=== PATIENT | male | born 1975 | race Caucasian/White ===

== ENCOUNTER 2019-08-30 10:48 | Emergency (ER) | payer BC, SELFPAY ==
--- NOTE | ~2019-08-30 | XR_ITS ---
XR shoulder LT min 2V 08/30/2019 11:22 INDICATION: Left shoulder pain PROCEDURE: 4 views left shoulder COMPARISON: No prior studies for comparison. FINDINGS: Fracture, dislocation or subluxation is not identified. The soft tissues appear within norm al limits. No foreign bodies are identified. IMPRESSION: 1: NO ACUTE BONE OR JOINT ABNORMALITY IDENTIFIED. Reviewed, dictated and finalized at location B.
[2019-08-30 10:54] VITALS: BP 131/87; PULSE 80; RESP 18; TEMP 36.1; O2SAT 100
--- NOTE | 2019-08-30 10:57 | ED.GENADULT ---
HPI - General Adult General Chief complaint: Extremity Injury, Upper Stated complaint: left shoulder injury Time Seen by Provider: 08/30/19 10:56 Source: patient Mode of arrival: ambulatory Limitations: no limitations History of Present Illness HPI narrative: 44-year-old male patient presents to the [facility] with complaints of left shoulder pain that started about 3 days ago. Patient states that Wednesday night his son was drinking and he was helping his son into the house and unsure if he injured his shoulder at that time however he states that the next morning he woke up with shoulder pain. Patient states the pain is shooting down the left arm. Patient states he has tried taking Advil without much relief. Patient states that he does do a lot of overhead work at his job. Patient denies any fevers, chest pain or shortness of breath. Related Data Allergies Allergy/AdvReac Type Severity Reaction Status Date / Time No Known Drug Allergies Allergy Unknown Unknown Verified 08/30/19 10:58 Review of Systems Review of Systems: Narrative: CONSTITUTIONAL: Denies fever, chills, or sweats. EYES: Denies visual changes, redness, or discharge. ENT: Denies rhinorrhea, congestion, sore throat, or otalgia. CARDIOVASCULAR: Denies chest pain, palpitations, or edema. RESPIRATORY: Denies cough or dyspnea. GASTROINTESTINAL: Denies abdominal pain, nausea, vomiting, or diarrhea. GENITOURINARY: Denies dysuria or hematuria. SKIN: Denies rash or itching. MUSCULOSKELETAL: Denies back pain, joint pain, or myalgia. Positive left shoulder pain NEUROLOGIC: Denies headache, numbness, or weakness. PSYCHIATRIC: Denies anxiety or depression. [facility] Past Medical History Medical History Aftercare following surgery Anxiety GERD (gastroesophageal reflux disease) ANNABELLE (obstructive sleep apnea) Surgical History Surgical History Status post arthroscopic knee surgery Tear of lateral meniscus of left knee Family History Family History Mother Family history of scoliosis Other Diabetes mellitus Family history of allergic disorder Family history of malignant neoplasm Social History Social History (Reviewed 08/30/19 @ 10:57 by JAYDEN Barraza Smoking status: Smoker, status unknown Alcohol intake: never Gender identity (if verbalized by the patient): Male Comments At the time of my signature I agree with nursing past medical history, surgical, social, and family history. There is no relevant family history pertinent to the presenting complaint. Exam Narrative: Exam Narrative: GENERAL: Well-appearing, well-nourished, and in no acute distress. HEAD: Normocephalic, atraumatic. EYES: PERRLA and EOMI. ENT: Nares clear, no rhinorrhea or epistaxis. Mucous membranes moist. NECK: Supple. No lymphadenopathy CHEST: Clear to auscultation. No respiratory distress. HEART: Regular rate and rhythm. No murmur heard. Normal peripheral pulses. ABDOMEN: Soft, nontender, nondistended, normal active bowel sounds. EXTREMITIES: The L shoulder is without obvious asymmetry or deformity when compared to the R shoulder. Patient does have's [place] of erythema noted to the posterior left shoulder measuring approximately 1.5 cm in diameter which appears to have 2 punctate burris noted in the middle with another smaller area of erythema measuring approximately 0.75 cm diameter below it with one punctate belinda. Patient complains of his shoulder pain right in the exact area of the larger circular erythema with the 2 punctate burris. No surface trauma, ecchymosis, crepitus. No bony deformity or prominence of the humeral head No erythema, warmth, swelling. no tenderness to palpation to clavicle, A to C joint, acromion, scapula or humeral head. No tenderness to palpation of the bicipital groove or soft tissues. No tenderness
[2019-08-30] MEDS: KETOROLAC (*BKC) 60 MG/2 ML VIAL IM (11:47)
[2019-08-30 12:09] LABS: Basophils Absolute Auto 0.1 K/mm3 (0.0-0.1); Basophils Percent Auto 1.1 % (0.2-1.2); Eosinophils Absolute Auto 0.4 K/mm3 (0-0.3); Hematocrit 49.1 % (42.0-52.0); Hemoglobin 16.9 g/dL (14.0-18.0); Immature Granulocyte Absolute 0.03 K/mm3 (0.00-0.031); Immature Granulocyte Percent A 0.3 % (0-0.5); Lymphocytes Absolute Auto 2.73 K/mm3 (0.9-3.2); Mean Corpuscular HGB Conc 34.4 g/dl (32-36); Mean Corpuscular Volume 87.2 fl (80-100); Mean Platelet Volume 10.1 fl (7.4-10.4); Monocytes Absolute Auto 0.8 K/mm3 (0.1-0.6); Monocytes Percent Auto 9.2 % (2.6-8.5); Neutrophils Absolute Auto 5.1 K/mm3 (1.3-6.7); Neutrophils Percent Auto 55.4 % (45.5-73.1); Platelet Count Result 202 k/mm3 (150-375); Red Blood Count 5.63 M/mm3 (4.6-6.20); Red Cell Distribution Width 13.2 % (11.5-14.5); White Blood Count 9.1 K/mm3 (4.5-10.0)
[2019-08-30 12:22] LABS: Alanine Aminotransferase 27 U/L (4-50); Albumin Level 4.3 g/dL (3.5-5.1); Alkaline Phosphatase 87 U/L (38-126); Aspartate Amino Transferase 26 U/L (17-59); Bilirubin,Total 0.4 mg/dL (0.2-1.3); Blood Urea Nitrogen 16 mg/dL (9-20); Carbon Dioxide 27 mmol/L (22-30); Chloride 103 mmol/L (98-107); Estimated CRCL calculation 82 ml/min; Estimated Glomerular Filt Rate > 60; Glucose 71 mg/dL (75-110); Sodium 137 mmol/L (137-145)
[2019-08-30 12:46] VITALS: BP 131/85; PULSE 72; RESP 18; O2SAT 100
== END 2019-08-30 12:47 | disposition home or self-care (01) ==
PROVIDERS: Emergency Provider Nurse Practitioner Family; PCP Internal Medicine
DX: S46.912A Strain of unspecified muscle, fascia and tendon at shoulder and upper arm level, left arm, initial encounter (principal); K21.9 Gastro-esophageal reflux disease without esophagitis; G47.33 Obstructive sleep apnea (adult) (pediatric); X58.XXXA Exposure to other specified factors, initial encounter
CPT/HCPCS: 36415; 73030; 80053; 85025; 96372; 99283; J1885

== ENCOUNTER 2019-12-24 13:34 | Outpatient (CLI) | payer BC, SELFPAY ==
--- NOTE | ~2019-12-24 | MR_ITS ---
EXAMINATION: MR knee LT wo con DATE: 12/24/2019 14:31 INDICATION: Medial left knee pain 2 weeks after running. Bursitis. TECHNIQUE: Magnetic resonance imaging (MRI) of the left knee was performed without intravenous contra st. Sequences included coronal PD-weighted FSE, coronal PD-weighted FS FSE, sagittal T2-weighted FSE , sagittal PD-weighted FS FSE and axial PD weighted fat saturated FSE. COMPARISON: None. FINDINGS: Medial compartment: Medial meniscus is normal. Near full-thickness chondral fissure without degenerative subchondral aldana ges extending proximally 7 mm AP along the lateral margin of the junction of the anterior to central weightbearing medial femoral condyle. Heterogeneous cartilage signal at the posterior weightbearing m edial femoral condyle suggesting additional less severe partial thickness fissuring. Lateral compartment: Longitudinal horizontal lateral meniscal tear which contacts the articular surface near the inner edward e edge and which extends from the anterior to the posterior horn. Several tiny parameniscal cysts melissa ng the periphery of the anterior horn and body. Partial-thickness cartilage loss and some chondral sagastume rface regularity along the posterior weightbearing lateral femoral condyle. Patellofemoral compartment: Articular cartilage is normal. Ligaments and tendons: Anterior and posterior cruciate ligaments are normal. The medial collateral ligament and fibular alecia ateral ligament complex are normal. The extensor mechanism is normal. The visualized medial and later al hamstring tendons as well as the iliotibial band are normal. Fluid: Physiologic amount of fluid in the joint space. No loose osteochondral bodies identified. Osseous/other: There is marrow edema surrounding a horizontally oriented low signal intensity subarticular fracture line underlying the posterior medial aspect of the medial tibial plateau. No pathologic marrow replac ing process. IMPRESSION: 1. Nondisplaced subarticular likely fracture line underlying the posterior medial aspect of the media l tibial plateau which could be related to either a discrete impaction injury or more chronic stress fracture. 2. Longitudinal horizontal tear of the lateral meniscus. 3. 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 Reviewed, dictated and finalized at location A. TRATOR IMPRESSION: 1. Nondisplaced subarticular likely fracture line underlying the posterior medi al aspect of the medial tibial plateau which could be related to either a discr ete impaction injury or more chronic stress fracture. 2. Longitudinal horizontal tear of the lateral meniscus. 3. 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
== END 2019-12-24 13:35 | disposition home or self-care (01) ==
LOC: ANHIMG 13:42
PROVIDERS: PCP Internal Medicine; Visit Provider Orthopaedic Surgery
DX: S83.282A Other tear of lateral meniscus, current injury, left knee, initial encounter (principal); M70.52 Other bursitis of knee, left knee; M17.12 Unilateral primary osteoarthritis, left knee; M22.42 Chondromalacia patellae, left knee
CPT/HCPCS: 73721

== ENCOUNTER 2020-02-12 11:46 | Emergency (ER) | payer BC, SELFPAY ==
[2020-02-12 11:56] VITALS: BP 117/77; PULSE 77; RESP 16; TEMP 36.2; O2SAT 98
--- NOTE | 2020-02-12 12:23 | ED.GENADULT ---
HPI - General Adult General Chief complaint: Back Pain/Injury Stated complaint: Low back pain Related Data Allergies Allergy/AdvReac Type Severity Reaction Status Date / Time No Known Drug Allergies Allergy Unknown Unknown Verified 02/12/20 12:36 Review of Systems Review of Systems: Narrative: CONSTITUTIONAL: Denies fever, chills, or sweats. EYES: Denies visual changes, redness, or discharge. ENT: Denies rhinorrhea, congestion, sore throat, or otalgia. CARDIOVASCULAR: Denies chest pain, palpitations, or edema. RESPIRATORY: Denies cough or dyspnea. GASTROINTESTINAL: Denies abdominal pain, nausea, vomiting, or diarrhea. GENITOURINARY: Bilateral flank pain x5 days SKIN: Denies rash or itching. MUSCULOSKELETAL: Back pain x5 days NEUROLOGIC: Denies headache, numbness, dizziness, or weakness. PSYCHIATRIC: Denies anxiety or depression. [facility] Past Medical History Medical History Aftercare following surgery Anxiety Back pain Carpal tunnel syndrome Ear infection GERD (gastroesophageal reflux disease) ANNABELLE (obstructive sleep apnea) Surgical History Surgical History History of carpal tunnel surgery Hx of tonsillectomy Status post arthroscopic knee surgery Tear of lateral meniscus of left knee Family History Family History Mother Family history of scoliosis Other Diabetes mellitus Family history of allergic disorder Family history of malignant neoplasm Social History Social History (Updated 02/12/20 @ 12:28 by MICHELE Urena) Smoking status: Never smoker Tobacco type: smokeless tobacco Smokeless tobacco user: chewing tobacco Alcohol intake: never Substance use: never Living arrangements: with family Gender identity (if verbalized by the patient): Male Exam Narrative: Exam Narrative: GENERAL: Well-appearing, well-nourished, and in no acute distress. HEAD: Normocephalic, atraumatic. EYES: No redness or drainage. ENT: Mucous membranes pink and moist. CHEST: No respiratory distress. HEART: Regular rate and rhythm. GI: Soft, nontender without rebound, or guarding. No distention. : Bilateral mild CVA tenderness with palpation MUSCULOSKELETAL: No bony tenderness. EXTREMITIES: Normal range of motion. No edema. SKIN: Warm, dry, no rash. NEURO: No focal deficits. Alert and oriented x3. Gait steady. PSYCH: Normal affect. No signs of depression or anxiety. Course Vital Signs Vital signs: Vital Signs Temperature 36.2 C L 02/12/20 11:56 Pulse Rate 77 02/12/20 11:56 Respiratory Rate 16 02/12/20 11:56 Blood Pressure 117/77 02/12/20 11:56 Pulse Oximetry 98 02/12/20 11:56 Temperature 36.2 C L 02/12/20 11:56 Pulse Rate 77 02/12/20 11:56 Respiratory Rate 16 02/12/20 11:56 Blood Pressure 117/77 02/12/20 11:56 Pulse Oximetry 98 02/12/20 11:56 Reviewed Transfer Transfered to: [facility] Transfer rationale: Bilateral flank pain, higher level of care with further diagnostic testing Accepting physician: Dr. Steven Transfer comments: Patient be transferred by private vehicle at this time. Medical Decision Making MDM Narrative Medical decision making narrative: Patient UA is negative, blood glucose of 112. With patient's bilateral CVA tenderness, further evaluation is warranted as well as possible diagnostic testing in the emergency department. Discussed with patient, patient agrees with plan of care. Patient is stable for transfer to [facility], report called. Differential Diagnosis Differential Diagnosis: Musculoskeletal back pain, kidney calculi, pyelonephritis Vital Signs Vital Signs: Vital Signs Temperature 36.2 C L 02/12/20 11:56 Pulse Rate 77 02/12/20 11:56 Respiratory Rate 16 02/12/20 11:56 Blood Pressure 117/77 02/12/20 11:56 Pulse Oximetry 98 02/12/20 11:56
[2020-02-12 12:26] LABS: Glucose Point of Care 112 (65-105)
== END 2020-02-12 12:49 | disposition short-term general hospital (02) ==
PROVIDERS: Emergency Provider Nurse Practitioner; PCP Internal Medicine
DX: R10.9 Unspecified abdominal pain (principal); K21.9 Gastro-esophageal reflux disease without esophagitis; G47.33 Obstructive sleep apnea (adult) (pediatric)
CPT/HCPCS: 81003; 82948; 99212; G0463

== ENCOUNTER 2020-02-12 13:06 | Emergency (ER) | payer BC, SELFPAY ==
[2020-02-12 13:12] VITALS: BP 112/64; PULSE 73; RESP 16; TEMP 36.2; O2SAT 100
[2020-02-12] MEDS: KETOROLAC 30 MG/ML VIAL (*BKC) IV PUSH (13:56)
[2020-02-12] MEDS: SODIUM CHLORIDE 0.9% IV 1,000 ML 999 ML IV CONT (13:56)
[2020-02-12 13:58] LABS: Basophils Absolute Auto 0.1 K/mm3 (0.0-0.1); Basophils Percent Auto 0.8 % (0.2-1.2); Eosinophils Absolute Auto 0.2 K/mm3 (0-0.3); Eosinophils Percent Auto 2.7 % (0-4.4); Hematocrit 50.4 % (42.0-52.0); Hemoglobin 17.4 g/dL (14.0-18.0); Immature Granulocyte Absolute 0.03 K/mm3 (0.00-0.031); Immature Granulocyte Percent A 0.3 % (0-0.5); Lymphocytes Percent Auto 34.9 % (18.3-44.2); Mean Corpuscular HGB Conc 34.5 g/dl (32-36); Mean Corpuscular Hemoglobin 30.1 pg (26-34); Mean Corpuscular Volume 87.2 fl (80-100); Monocytes Absolute Auto 0.8 K/mm3 (0.1-0.6); Monocytes Percent Auto 8.7 % (2.6-8.5); Neutrophils Absolute Auto 4.5 K/mm3 (1.3-6.7); Neutrophils Percent Auto 52.6 % (45.5-73.1); Platelet Count Result 208 k/mm3 (150-375); Red Blood Count 5.78 M/mm3 (4.6-6.20); Red Cell Distribution Width 12.8 % (11.5-14.5); White Blood Count 8.6 K/mm3 (4.5-10.0)
[2020-02-12 14:06] LABS: Alanine Aminotransferase 53 U/L (4-50); Albumin Level 4.5 g/dL (3.5-5.1); Alkaline Phosphatase 86 U/L (38-126); Anion Gap 10 mmol/L (8-16); Aspartate Amino Transferase 40 U/L (17-59); Bilirubin,Total 0.6 mg/dL (0.2-1.3); Blood Urea Nitrogen 20 mg/dL (9-20); Calcium 9.5 mg/dL (8.4-10.2); Carbon Dioxide 28 mmol/L (22-30); Chloride 100 mmol/L (98-107); Estimated CRCL calculation 89 ml/min; Estimated Glomerular Filt Rate > 60; Glucose 94 mg/dL (75-110); Potassium 4.4 mmol/L (3.4-5.0); Sodium 138 mmol/L (137-145)
--- NOTE | 2020-02-12 14:09 | ED.BACK ---
HPI - Back Pain/Injury General Chief Complaint: Back Pain/Injury Stated Complaint: flank pain Time Seen by Provider: 02/12/20 13:09 Source: patient and family Mode of arrival: ambulatory Limitations: no limitations History of Present Illness HPI Narrative: Patient is a 44-year-old male who presents to emergency department for evaluation of low back pain for the last week denying injury or trauma is currently rehabbing from a patella fracture using a walking cane patient notes aching pain across the lumbar that does not radiate made worse with activity and movement denies any injury or trauma and is otherwise resting comfortably in the room in no distress not currently taken anything other than his prescribed narcotic for the pain Related Data Allergies Allergy/AdvReac Type Severity Reaction Status Date / Time No Known Drug Allergies Allergy Unknown Unknown Verified 02/12/20 12:36 Review of Systems Review of Systems: All systems reviewed & are unremarkable except as noted in HPI and below PMFSH Past Medical History Medical History Aftercare following surgery Anxiety Back pain Carpal tunnel syndrome Ear infection GERD (gastroesophageal reflux disease) ANNABELLE (obstructive sleep apnea) Surgical History Surgical History History of carpal tunnel surgery Hx of tonsillectomy Status post arthroscopic knee surgery Tear of lateral meniscus of left knee Family History Family History Mother Family history of scoliosis Other Diabetes mellitus Family history of allergic disorder Family history of malignant neoplasm Social History Social History Smoking status: Never smoker Tobacco type: smokeless tobacco Smokeless tobacco user: chewing tobacco Alcohol intake: never Substance use: never Gender identity (if verbalized by the patient): Male Exam Narrative: Exam Narrative: GENERAL: Well-appearing, well-nourished, and in no acute distress. HEAD: Normocephalic, atraumatic. EYES: PERRLA and EOMI. ENT: Nares clear, no rhinorrhea or epistaxis. Mucous membranes moist. CHEST: Clear to auscultation. No respiratory distress. No wheezes rales or rhonchi HEART: Regular rate and rhythm. No murmur heard. Normal peripheral pulses. ABDOMEN: Soft, nontender, nondistended EXTREMITIES: Normal range of motion. No edema. Bilateral lumbar paraspinal muscular tenderness to palpation no rash or deformities noted SKIN: Warm, dry, no rash. NEURO: No focal deficits. Alert and oriented x3. Cranial nerves II through XII grossly intact. Motor and sensory intact and symmetrical in the extremities PSYCH: Normal mood and affect. Course Course Emergency Course: Patient in the room in no distress aware of case findings treatment plan diagnosis felt appropriate for outpatient reevaluation. Celina that it is likely musculoskeletal back pain. Vital Signs Vital signs: Vital Signs Temperature 97.1 F L 02/12/20 13:12 Pulse Rate 73 02/12/20 13:12 Respiratory Rate 16 02/12/20 13:12 Blood Pressure 112/64 02/12/20 13:12 Pulse Oximetry 100 02/12/20 13:12 Temperature 97.1 F L 02/12/20 13:12 Pulse Rate 73 02/12/20 13:12 Respiratory Rate 16 02/12/20 13:12 Blood Pressure 112/64 02/12/20 13:12 Pulse Oximetry 100 02/12/20 13:12 MDM - Back Pain/Injury MDM Narrative Medical decision making narrative: Patients pain is positional in nature and localized to back without signs of cord compression or cauda equina based on neurological exam, skeletal exam and history. No fever or other significant factors to suggest osteomyelitis or spinal epidural abscess. No symptoms or signs to suggest pain is referred from abdominal or / cardiopulmonary sources. No pulsatile masses noted on exam. Patient ambulates
[2020-02-12 14:11] LABS: Add Urine Microscopic? NO; Appearance Urine Clear (Clear); Bilirubin Urine Negative (Negative); Blood Urine Negative (Negative); Color Urine Yellow (Yellow); Glucose Urine UA Negative (Negative); Ketones Urine Negative (Negative); Leukocyte Esterase Ur Negative LEU/UL (Negative); Nitrate Urine Negative (Negative); Protein Urine Negative (Negative); Specific Grav Ur 1.019 (1.001-1.035); Urobilinogen Urine Negative mg/dL (<2.0)
[2020-02-12 15:17] VITALS: BP 134/75; PULSE 81; O2SAT 97
== END 2020-02-12 15:18 | disposition home or self-care (01) ==
PROVIDERS: Emergency Medicine Emergency Medical Services; Emergency Provider Emergency Medicine; PCP Internal Medicine
DX: M54.5 Low back pain (principal); G47.33 Obstructive sleep apnea (adult) (pediatric); K21.9 Gastro-esophageal reflux disease without esophagitis; F17.220 Nicotine dependence, chewing tobacco, uncomplicated
CPT/HCPCS: 36415; 80053; 81003; 85025; 96361; 96374; 99284; J1885; J7030

== ENCOUNTER 2020-02-28 15:18 | Outpatient (CLI) | payer BC, SELFPAY ==
--- NOTE | ~2020-02-28 | US_ITS ---
EXAMINATION: US right upper quadrant EXAM DATE: 02/28/2020 15:46 INDICATION: R10.11 - Right upper quadrant pain. TECHNIQUE: Multiple grayscale and Doppler images of the abdomen right upper quadrant were obtained (b y a technologist who performed the scan) and subsequently reviewed. There is no prior study for betty rizo. FINDINGS: The pancreatic head and body are normal in appearance. The pancreatic tail is not visualized. The l iver has normal echogenicity and contour. There are no focal liver lesions identified. There is no evidence of intrahepatic biliary duct dilation. Portal venous flow was seen in the hepatopedal, nor mal direction and has normal Doppler waveform. No right-sided hydronephrosis. Common bile duct measures 4 mm, which is normal. The gallbladder wall is normal in thickness, with ex pected amount of distention. No sonographic evidence of pericholecystic fluid. There is no cholelit hiases. Technologist performing exam reports patient did not demonstrate sonographic Pham's sign. Please note that this sign is less reliable in patients who have received pain medication. IMPRESSION: 1. Unremarkable abdominal ultrasound exam. Reviewed, dictated and finalized at location B. TER HAND
== END 2020-02-28 15:19 | disposition home or self-care (01) ==
PROVIDERS: PCP Internal Medicine; Visit Provider Internal Medicine
DX: R10.11 Right upper quadrant pain (principal)
CPT/HCPCS: 76705

== ENCOUNTER 2020-04-03 09:36 | Emergency (ER) | payer BC, SELFPAY ==
--- NOTE | ~2020-04-03 | XR_ITS ---
XR chest 1V portable DATE: 04/03/2020 11:07 INDICATION: Fatigue TECHNIQUE: Portable upright AP chest on April 03, 2020 1102 hours COMPARISON: 12/04/2016 PA and lateral chest FINDINGS: Normal heart size. No hilar or mediastinal enlargement. No pulmonary infiltrate or consolid ation, pleural effusion or pulmonary vascular congestion or pneumothorax is detected. IMPRESSION: No active cardiopulmonary disease Reviewed, dictated and finalized at location B. SETTER
[2020-04-03 09:40] VITALS: BP 123/86; PULSE 69; RESP 20; TEMP 36.1; O2SAT 98
--- NOTE | 2020-04-03 10:49 | ECG_ITS ---
Measurements Intervals [place] Rate: 50 P: 30 MO: 136 QRS: -19 QRSD: 81 T: -3 QT: 419 QTc: 385 Interpretive Statements SINUS BRADYCARDIA INCOMPLETE RIGHT BUNDLE BRANCH BLOCK LOW QRS VOLTAGE IN PRECORDIAL LEADS BORDERLINE T WAVE ABNORMALITY- INFERIOR LEADS BORDERLINE ECG Electronically Signed On 04-03-2020 13:08:12 DIRECTOR OF INSTITUTIONAL SALES by David Azul D.O.
[2020-04-03 11:08] VITALS: BP 120/82; PULSE 57; RESP 16; O2SAT 98
[2020-04-03 11:09] VITALS: PULSE 57
[2020-04-03] MEDS: SODIUM CHLORIDE 0.9% IV 1,000 ML 999 ML IV CONT (11:31)
[2020-04-03 12:09] LABS: Basophils Absolute Auto 0.1 K/mm3 (0.0-0.1); Basophils Percent Auto 0.8 % (0.2-1.2); Eosinophils Absolute Auto 0.2 K/mm3 (0-0.3); Hemoglobin 14.6 g/dL (14.0-18.0); Immature Granulocyte Absolute 0.02 K/mm3 (0.00-0.031); Immature Granulocyte Percent A 0.2 % (0-0.5); Lymphocytes Absolute Auto 3.04 K/mm3 (0.9-3.2); Lymphocytes Percent Auto 35.7 % (18.3-44.2); Mean Corpuscular HGB Conc 33.2 g/dl (32-36); Mean Corpuscular Hemoglobin 30.3 pg (26-34); Mean Corpuscular Volume 91.3 fl (80-100); Mean Platelet Volume 11.1 fl (7.4-10.4); Monocytes Absolute Auto 0.7 K/mm3 (0.1-0.6); Monocytes Percent Auto 8.5 % (2.6-8.5); Neutrophils Absolute Auto 4.5 K/mm3 (1.3-6.7); Neutrophils Percent Auto 52.8 % (45.5-73.1); Platelet Count Result 188 k/mm3 (150-375); Red Blood Count 4.82 M/mm3 (4.6-6.20); Red Cell Distribution Width 13.7 % (11.5-14.5); White Blood Count 8.5 K/mm3 (4.5-10.0)
[2020-04-03 12:28] LABS: Anion Gap 4 mmol/L (8-16); Blood Urea Nitrogen 13 mg/dL (9-20); Calcium 8.4 mg/dL (8.4-10.2); Carbon Dioxide 27 mmol/L (22-30); Chloride 106 mmol/L (98-107); Estimated CRCL calculation 94 ml/min; Estimated Glomerular Filt Rate > 60; Glucose 74 mg/dL (75-110); Sodium 137 mmol/L (137-145)
[2020-04-03 12:40] LABS: Troponin I < 0.012 ng/mL (0.000-0.034)
[2020-04-03 12:44] VITALS: BP 123/79; PULSE 60; RESP 15; O2SAT 100
--- NOTE | 2020-04-03 12:56 | ED.GENADULT ---
HPI - General Adult General Chief complaint: Unspecified Stated complaint: nausea Time Seen by Provider: 04/03/20 09:49 Source: patient Mode of arrival: ambulatory History of Present Illness HPI narrative: Patient is a 44-year-old male who presents with fatigue body aches that began yesterday after shoveling snow patient denies any URI symptoms fever chills nausea vomiting presents per private vehicle in no distress was advised to come to ER by primary care for COVID-19 testing patient denies sick contacts or other complaints and on arrival does not appear uncomfortable or distressed Related Data Allergies Allergy/AdvReac Type Severity Reaction Status Date / Time No Known Drug Allergies Allergy Unknown Unknown Verified 04/03/20 09:43 Review of Systems Review of Systems: All systems reviewed & are unremarkable except as noted in HPI and below PMFSH Past Medical History Medical History Aftercare following surgery Anxiety Back pain Carpal tunnel syndrome Ear infection GERD (gastroesophageal reflux disease) ANNABELLE (obstructive sleep apnea) Surgical History Surgical History History of carpal tunnel surgery Hx of tonsillectomy Status post arthroscopic knee surgery Tear of lateral meniscus of left knee Family History Family History Mother Family history of scoliosis Other Diabetes mellitus Family history of allergic disorder Family history of malignant neoplasm Social History Social History Smoking status: Never smoker Tobacco type: smokeless tobacco Smokeless tobacco user: chewing tobacco Alcohol intake: never Substance use: never Gender identity (if verbalized by the patient): Male Exam Narrative: Exam Narrative: GENERAL: Well-appearing, well-nourished, and in no acute distress. HEAD: Normocephalic, atraumatic. EYES: PERRLA and EOMI. ENT: Nares clear, no rhinorrhea or epistaxis. Mucous membranes moist. CHEST: Clear to auscultation. No respiratory distress. No wheezes rales or rhonchi HEART: Regular rate and rhythm. No murmur heard. Normal peripheral pulses. ABDOMEN: Soft, nontender, nondistended EXTREMITIES: Normal range of motion. No edema. SKIN: Warm, dry, no rash. NEURO: No focal deficits. Alert and oriented x3. PSYCH: Normal mood and affect. Course Course Emergency Course: Patient evaluated in the emergency department no high risk changes in the evaluation will be tested for Covid with outpatient follow-up. Patient agrees with this plan ABCs and vital signs intact and stable patient in no distress Vital Signs Vital signs: Vital Signs Temperature 97.0 F L 04/03/20 09:40 Pulse Rate 69 04/03/20 09:40 Respiratory Rate 20 04/03/20 09:40 Blood Pressure 123/86 04/03/20 09:40 Pulse Oximetry 98 04/03/20 09:40 Temperature 97.0 F L 04/03/20 09:40 Pulse Rate 60 04/03/20 12:44 Respiratory Rate 15 04/03/20 12:44 Blood Pressure 123/79 04/03/20 12:44 Pulse Oximetry 100 04/03/20 12:44 Medical Decision Making MDM Narrative Medical decision making narrative: Paitents EKGs and labs are without significant high risk changes. Cardiac risk facotrs were reviewd. Patient is felt likely to be low risk for ACS and resonable for further risk stratification testing as an outpatient. Pain was not suddne or maximal in onset without tearing or ripping. quality. No other signs or symptoms to suggest aortic dissection. A low-risk Wells criteria is noted. PE is felt to be unlikely. No pneumonia or URI symptoms were seen on evaluation today. Patient is felt to b resonable for continued evaluation as an outpatient. Vital Signs Vital Signs: Vital Signs Temperature 97.0 F L 04/03/20 09:40 Pulse Rate 69 04/03/20 09:40 Respiratory Rate 20 04/03/20 09:40
[2020-04-03 13:47] VITALS: BP 123/83; PULSE 59; RESP 18; O2SAT 98
[2020-04-03 19:41] LABS: SARS-CoV-2 RNA PCR Negative
== END 2020-04-03 13:48 | disposition home or self-care (01) ==
PROVIDERS: Emergency Medicine Emergency Medical Services; Emergency Provider Emergency Medicine; PCP Internal Medicine
DX: R53.1 Weakness (principal); Z20.822 Contact with and (suspected) exposure to COVID-19; K21.9 Gastro-esophageal reflux disease without esophagitis; G47.33 Obstructive sleep apnea (adult) (pediatric); F17.220 Nicotine dependence, chewing tobacco, uncomplicated; R00.1 Bradycardia, unspecified; I45.10 Unspecified right bundle-branch block
CPT/HCPCS: 36415; 71045; 80048; 84484; 85025; 93005; 96365; 99284; C9803; J0131; J7030; U0003; U0005

== ENCOUNTER 2022-01-28 12:28 | Emergency (ER) | payer BC, SELFPAY ==
[2022-01-28 12:36] VITALS: BP 142/84; PULSE 85; RESP 18; TEMP 36.8; O2SAT 98
[2022-01-28 13:21] LABS: Influenza A QL RT-PCR Positive (Negative); Influenza B QL RT-PCR Negative (Negative); RSV RNA, RT-PCR Negative (Negative); SARS-CoV-2 RNA PCR Negative
--- NOTE | 2022-01-28 13:42 | ED.URI ---
HPI - URI/Sore Throat General Chief Complaint: Upper Respiratory Infection Stated Complaint: fever, bodyaches Time Seen by Provider: 01/28/22 13:25 History of Present Illness HPI Narrative: 46-year-old male no medical problems presents emergency room for evaluation of subjective fever, body aches, sinus congestion and painful cough. States he took 2 at home COVID test and they are both negative. Has been taking Tylenol and ibuprofen for his symptoms Related Data Allergies Allergy/AdvReac Type Severity Reaction Status Date / Time No Known Drug Allergies Allergy Unknown Unknown Verified 10/08/21 11:39 Review of Systems Review of Systems: CONSTITUTIONAL: Denies fever, chills, or sweats. EYES: Denies visual changes, redness, or discharge. ENT: Reports rhinorrhea, and congestion CARDIOVASCULAR: Denies chest pain, palpitations, or edema. RESPIRATORY: Reports cough GASTROINTESTINAL: Denies abdominal pain, nausea, vomiting, or diarrhea. GENITOURINARY: Denies dysuria or hematuria. SKIN: Denies rash or itching. MUSCULOSKELETAL: Denies back pain, joint pain, or myalgia. NEUROLOGIC: Denies headache, numbness, dizziness, or weakness. PSYCHIATRIC: Denies anxiety or depression. 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 Ear infection GERD (gastroesophageal reflux disease) ANNABELLE (obstructive sleep apnea) Pes anserinus bursitis of left knee Stress fracture of tibia Surgical History Surgical History History of carpal tunnel surgery Hx of tonsillectomy Status post arthroscopic knee surgery Tear of lateral meniscus of left knee Family History Family History Mother Family history of scoliosis Other Diabetes mellitus Family history of allergic disorder Family history of malignant neoplasm Social History Social History Smoking status: Former smoker Tobacco type: smokeless tobacco Smokeless tobacco user: chewing tobacco Alcohol intake: never Substance use: never Gender identity (if verbalized by the patient): Male Exam Narrative: GENERAL: Well-appearing, well-nourished, no physical limitations, and in no acute distress. HEAD: Normocephalic, atraumatic. EYES: Conjunctivae normal, PERRLA and EOMI. ENT: External nose normal, Nares clear, no rhinorrhea or epistaxis. Mucous membranes moist. Oropharynx without tonsillar hypertrophy exudate or other lesions. External ears normal, bilateral TMs normal bilaterally NECK: Supple. No meningeal signs. No adenopathy or masses. CHEST: Clear to auscultation. No respiratory distress. No wheezes rales or rhonchi. HEART: Regular rate and rhythm. No murmur heard. Normal peripheral pulses. EXTREMITIES: Normal range of motion. No edema. No clubbing or cyanosis SKIN: Warm, dry, no rash. No noted wounds NEURO: No focal deficits. Alert and oriented x3. MAEW. CN's II-XI intact bilaterally, normal gait PSYCH: Cooperative. Normal mood and affect. Course Vital Signs Vital signs: Vital Signs Temperature 36.8 C 01/28/22 12:36 Pulse Rate 85 01/28/22 12:36 Respiratory Rate 18 01/28/22 12:36 Blood Pressure 142/84 H 01/28/22 12:36 Pulse Oximetry 98 01/28/22 12:36 Oxygen Delivery Room Air 01/28/22 12:36 Temperature 36.8 C 01/28/22 12:36 Pulse Rate 85 01/28/22 12:36 Respiratory Rate 18 01/28/22 12:36 Blood Pressure 142/84 H 01/28/22 12:36 Pulse Oximetry 98 01/28/22 12:36 Oxygen Delivery Room Air 01/28/22 12:36 MDM - URI/Sore Throat Lab Data Labs: Lab Results 01/28/22 Range/Units 12:40 Influenza A (RT-PCR) Positive (Negative) Influenza B (RT-PCR) Negative (Negative) RSV (RT-PCR) Negative (Negative) SARS-CoV-2 RN
[2022-01-28 14:00] VITALS: BP 148/89; PULSE 85; RESP 16; O2SAT 98
== END 2022-01-28 14:34 | disposition home or self-care (01) ==
LOC: ANHED 14:01
PROVIDERS: Emergency Medicine; Emergency Provider Nurse Practitioner Family; PCP Family Medicine
DX: J10.1 Influenza due to other identified influenza virus with other respiratory manifestations (principal); Z20.822 Contact with and (suspected) exposure to COVID-19; K21.9 Gastro-esophageal reflux disease without esophagitis; G47.33 Obstructive sleep apnea (adult) (pediatric); Z87.891 Personal history of nicotine dependence
CPT/HCPCS: 87637; 99283

== ENCOUNTER 2022-09-04 21:39 | Emergency (ER) | payer BC, SELFPAY ==
[2022-09-04] VITALS (11 sets, daily range): BP systolic 121–134; BP diastolic 80–98; PULSE 63–73; RESP 9–18; TEMP 36.4; O2SAT 97–100
--- NOTE | ~2022-09-04 | CT_ITS ---
EXAMINATION: CT cervical spine wo con DATE: 09/05/2022 00:48 INDICATION: Numbness of the left arm. TECHNIQUE: Computed tomography (CT) of the cervical spine was performed without intravenous contrast. The dose-length product was 579 mGy-cm. Automated exposure control and iterative reconstruction tech nique were employed. COMPARISON: None FINDINGS: There is straightening of cervical lordosis. There is disc narrowing at C5-6 and C6-7-1 sma ll dorsal osteophytes at these levels. Odontoid process is normal. Vertebral body heights are maintai kevin. There are emphysematous changes in the lung apices. No significant paraspinal soft tissue abnorm ality. No evidence for perched facet. Craniovertebral junction is normal. There is mild multilevel bi lateral neural foraminal stenosis. IMPRESSION: 1. No acute abnormality of the cervical spine. Reviewed, dictated and finalized at location A.
--- NOTE | ~2022-09-04 | XR_ITS ---
EXAMINATION: XR chest 2V Exam Date/Time: 09/04/2022 21:55 CDT HISTORY: Chest pain Comparison: 04/03/2020. RESULT: Lines, tubes, and devices: None. Lungs and pleura: Clear. Cardiomediastinal silhouette: Stable. Other: No acute osseous or upper abdominal finding. IMPRESSION: No acute cardiopulmonary process. Reviewed, dictated and finalized at location K.
--- NOTE | 2022-09-04 21:41 | ECG_ITS ---
Measurements Intervals [place] Rate: 75 P: 35 TX: 133 QRS: -18 QRSD: 79 T: 23 QT: 382 QTc: 427 Interpretive Statements SINUS RHYTHM NORMAL ECG COMPARED TO ECG 04/03/2020 11:00:33 SINUS RHYTHM NOW PRESENT Electronically Signed On 09-05-2022 7:10:56 CDT by David Azul D.O.
[2022-09-04 22:01] LABS: Basophils Absolute Auto 0.1 K/mm3 (0.0-0.1); Basophils Percent Auto 0.9 % (0.2-1.2); Eosinophils Absolute Auto 0.2 K/mm3 (0-0.3); Eosinophils Percent Auto 1.7 % (0-4.4); Hematocrit 47.3 % (42.0-52.0); Hemoglobin 16.2 g/dL (14.0-18.0); Immature Granulocyte Absolute 0.03 K/mm3 (0.00-0.031); Immature Granulocyte Percent A 0.3 % (0-0.5); Lymphocytes Absolute Auto 2.52 K/mm3 (0.9-3.2); Lymphocytes Percent Auto 25.2 % (18.3-44.2); Mean Corpuscular HGB Conc 34.2 g/dl (32-36); Mean Corpuscular Hemoglobin 31.2 pg (26-34); Mean Platelet Volume 9.8 fl (7.4-10.4); Monocytes Absolute Auto 0.8 K/mm3 (0.1-0.6); Monocytes Percent Auto 8.3 % (2.6-8.5); Neutrophils Absolute Auto 6.4 K/mm3 (1.3-6.7); Neutrophils Percent Auto 63.6 % (45.5-73.1); Platelet Count Result 216 k/mm3 (150-375); Red Cell Distribution Width 13.1 % (11.5-14.5)
[2022-09-04 22:12] LABS: Alanine Aminotransferase 29 U/L (6-50); Albumin Level 4.5 g/dL (3.5-5.1); Alkaline Phosphatase 99 U/L (38-126); Anion Gap 11 mmol/L (8-16); Aspartate Amino Transferase 31 U/L (17-59); Bilirubin,Total 0.6 mg/dL (0.2-1.3); Blood Urea Nitrogen 17 mg/dL (9-20); Carbon Dioxide 25 mmol/L (22-30); Chloride 103 mmol/L (98-107); Estimated CRCL calculation 93 ml/min; Estimated Glomerular Filt Rate > 60; Glucose 93 mg/dL (65-110); Lipase 94 U/L (23-300); Sodium 139 mmol/L (137-145)
[2022-09-04] MEDS: ASPIRIN 81 MG CHEWABLE TABLET 324 MG PO (22:18)
[2022-09-04 22:24] LABS: Troponin I < 0.012 ng/mL (0.000-0.034)
[2022-09-04 22:45] LABS: Prothrombin Time 13.1 Seconds (11.1-14.7)
--- NOTE | 2022-09-04 23:21 | ED.CHESTPAIN ---
HPI - Chest Pain General Chief Complaint: Chest Pain <UNIQUE Hinojosa Last Filed: 09/05/22 02:40> Stated Complaint: Chest pain, left arm numbness <UNIQUE Hinojosa Last Filed: 09/05/22 02:40> Time Seen by Provider: 09/04/22 22:01 <Paula Caballero PA-C - Last Filed: 09/05/22 02:40> History of Present Illness HPI narrative: 47-year-old male with a history of ANNABELLE, anxiety, GERD, reports for evaluation for chest pain x4 hours. Patient states the pain is located in his anterior chest wall and describes it as a dull ache. States there is a dull ache rating down his left arm with associated. States there is numbness in his left first through third digits. He does report a history of carpal tunnel. He reports intermittent pain on the left side of his neck, denies current pain. States he had similar chest pain last week which lasted a few hours and then spontaneously resolved. He denies shortness of breath, cough or congestion, fever, back pain, indigestion, abdominal pain, nausea or vomiting, diarrhea, diaphoresis. He did not get evaluated for his prior chest pain. He is scheduled to see a electric plater for a stress test ordered by his PCP this October. <Paula Caballero PA-C - Last Filed: 09/05/22 02:40> Related Data Allergies/Adverse Reactions: Allergies Allergy/AdvReac Type Severity Reaction Status Date / Time No Known Drug Allergies Allergy Unknown Unknown Verified 10/08/21 11:39 <UNIQUE Hinojosa Last Filed: 09/05/22 02:40> Review of Systems Review of Systems: CONSTITUTIONAL: Denies fever, chills EYES: Denies visual changes, redness, or discharge. ENT: Denies rhinorrhea, congestion, sore throat, or otalgia. CARDIOVASCULAR: See HPI RESPIRATORY: Denies cough or dyspnea. GASTROINTESTINAL: Denies abdominal pain, nausea, vomiting, or diarrhea. GENITOURINARY: Denies dysuria or hematuria. SKIN: Denies rash or itching. MUSCULOSKELETAL: Denies back pain, joint pain, or myalgia. NEUROLOGIC: See HPI PSYCHIATRIC: Denies anxiety or depression. 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 Ear infection GERD (gastroesophageal reflux disease) ANNABELLE (obstructive sleep apnea) Pes anserinus bursitis of left knee Stress fracture of tibia <Paula Caballero PA-C - Last Filed: 09/05/22 02:40> Surgical History Surgical History: Surgical History History of carpal tunnel surgery Hx of tonsillectomy Status post arthroscopic knee surgery Tear of lateral meniscus of left knee <Paula Caballero PA-C - Last Filed: 09/05/22 02:40> Family History Family History: Family History Mother Family history of scoliosis Other Diabetes mellitus Family history of allergic disorder Family history of malignant neoplasm <Paula Caballero PA-C - Last Filed: 09/05/22 02:40> Social History Social History: Social History Smoking status: Former smoker Tobacco type: smokeless tobacco Smokeless tobacco user: chewing tobacco Alcohol intake: never Substance use: never Living arrangements: with family Gender identity (if verbalized by the patient): Male <Paula Caballero PA-C - Last Filed: 09/05/22 02:40> Exam Narrative: GENERAL: Well-appearing, in no acute distress. Patient resting comfortably in exam bed. He is pleasant and conversational. HEAD: Normocephalic EYES: PERRLA ENT: Nares clear. Mucous membranes moist. Oropharynx without tonsillar hypertrophy exudate or other lesions. NECK: Supple. CHEST: No respiratory distress. Clear to auscultation, no adven
[2022-09-05] VITALS (12 sets, daily range): BP systolic 129–134; BP diastolic 74–102; PULSE 61–75; RESP 12–31; TEMP 36.6; O2SAT 93–100
[2022-09-05 02:10] LABS: Troponin I < 0.012 ng/mL (0.000-0.034)
== END 2022-09-05 03:04 | disposition home or self-care (01) ==
PROVIDERS: Emergency Medicine; Emergency Provider Physician Assistant; PCP Family Medicine Sports Medicine
DX: R07.89 Other chest pain (principal); K21.9 Gastro-esophageal reflux disease without esophagitis; G47.33 Obstructive sleep apnea (adult) (pediatric); Z87.891 Personal history of nicotine dependence
CPT/HCPCS: 36415; 71046; 72125; 80053; 83690; 84484; 85025; 85610; 85730; 93005; 99284; A9270

== ENCOUNTER 2022-11-09 18:31 | Emergency (ER) | payer BC, SELFPAY ==
--- NOTE | ~2022-11-09 | CT_ITS ---
EXAMINATION: CT abdomen pelvis w con DATE: 11/09/2022 23:18 INDICATION: abdominal pain TECHNIQUE: Computed tomography (CT) of the abdomen and pelvis was performed with 100 mL Omnipaque-350 intravenous contrast. Automated exposure control and iterative reconstruction technique were employe d. The dose-length product was 1051.98 mGy-cm. COMPARISON: None. FINDINGS: Lower thorax: Linear right middle lobe scar/atelectasis. Right lower lobe air cyst. Liver: Normal. Biliary/Gallbladder: Gallbladder is normal. No bile duct dilation. Pancreas: No mass or duct dilation. Spleen: Normal. Adrenals:No mass. Kidneys: No suspicious mass, obstructing stone, or hydronephrosis. GI tract: Mild distal esophageal and gastric wall edema. No small or large bowel dilation. Normal naye endix. Mesentery/Peritoneum: No ascites, mass, or free air. Retroperitoneum: No mass. Pelvis: Pelvic organs are within normal limits. Soft Tissues: Soft tissues and body wall unremarkable. Bones: No acute osseous finding. IMPRESSION: Mild esophagitis/gastritis. Otherwise unremarkable CT abdomen and pelvis findings. Reviewed, dictated and finalized at location K.
[2022-11-09 18:52] VITALS: BP 125/79; PULSE 81; RESP 16; TEMP 36.3; O2SAT 100
[2022-11-09 19:36] LABS: Basophils Absolute Auto 0.1 K/mm3 (0.0-0.1); Basophils Percent Auto 0.8 % (0.2-1.2); Eosinophils Absolute Auto 0.1 K/mm3 (0-0.3); Eosinophils Percent Auto 1.9 % (0-4.4); Hematocrit 47.2 % (42.0-52.0); Immature Granulocyte Absolute 0.03 K/mm3 (0.00-0.031); Immature Granulocyte Percent A 0.4 % (0-0.5); Lymphocytes Absolute Auto 1.79 K/mm3 (0.9-3.2); Lymphocytes Percent Auto 24.8 % (18.3-44.2); Mean Corpuscular HGB Conc 33.9 g/dl (32-36); Mean Corpuscular Hemoglobin 31.3 pg (26-34); Mean Corpuscular Volume 92.2 fl (80-100); Mean Platelet Volume 10.1 fl (7.4-10.4); Monocytes Absolute Auto 0.7 K/mm3 (0.1-0.6); Monocytes Percent Auto 10.2 % (2.6-8.5); Neutrophils Absolute Auto 4.5 K/mm3 (1.3-6.7); Neutrophils Percent Auto 61.9 % (45.5-73.1); Platelet Count Result 194 k/mm3 (150-375); Red Blood Count 5.12 M/mm3 (4.6-6.20); Red Cell Distribution Width 12.7 % (11.5-14.5); White Blood Count 7.2 K/mm3 (4.5-10.0)
[2022-11-09 19:37] LABS: Appearance Urine Clear (Clear); Bilirubin Urine Negative (Negative); Blood Urine Negative (Negative); Color Urine Yellow (Yellow); Glucose Urine UA Negative (Negative); Ketones Urine Trace mg/dL (Negative); Leukocyte Esterase Ur Negative LEU/UL (Negative); Nitrate Urine Negative (Negative); Protein Urine Negative (Negative); Specific Grav Ur 1.029 (1.001-1.035); pH Urine 5.5 (5.0-9.0)
[2022-11-09 19:42] LABS: Add Urine Microscopic? NO
[2022-11-09 19:45] LABS: Alanine Aminotransferase 28 U/L (6-50); Albumin Level 4.3 g/dL (3.5-5.1); Alkaline Phosphatase 79 U/L (38-126); Anion Gap 9 mmol/L (8-16); Aspartate Amino Transferase 25 U/L (17-59); Bilirubin,Total 0.7 mg/dL (0.2-1.3); Blood Urea Nitrogen 15 mg/dL (9-20); Calcium 8.8 mg/dL (8.4-10.2); Carbon Dioxide 27 mmol/L (22-30); Chloride 103 mmol/L (98-107); Estimated CRCL calculation 93 ml/min; Estimated Glomerular Filt Rate > 60; Glucose 121 mg/dL (65-110); Lipase 86 U/L (23-300); Potassium 3.8 mmol/L (3.4-5.0); Sodium 139 mmol/L (137-145)
[2022-11-09 20:38] VITALS: BP 113/88; PULSE 73; RESP 15; TEMP 36.4; O2SAT 96
[2022-11-09 22:37] VITALS: BP 130/80; PULSE 61; RESP 12; O2SAT 98
[2022-11-09] MEDS: ONDANSETRON INJ 4 MG/2 ML VIAL IV PUSH (23:01)
[2022-11-09] MEDS: PANTOPRAZOLE SODIUM IV 40 MG VIAL IV PUSH (23:01)
[2022-11-09] MEDS: SODIUM CHLORIDE 0.9% IV 1,000 ML 999 ML IV CONT (23:01)
[2022-11-10 00:21] VITALS: BP 121/88; PULSE 62; RESP 16; O2SAT 99
--- NOTE | 2022-11-10 00:35 | ED.GENADULT ---
HPI - General Adult General Chief complaint: Abdominal Pain Stated complaint: upper abd pain Time Seen by Provider: 11/09/22 22:47 History of Present Illness HPI narrative: Patient 47-year-old gentleman who presents the emergency check of epigastric pain. Patient reports that he recently ate a lot of food weekend and drink a fair amount of alcohol the patient reports he was having pain in the epigastric region that radiates to his back patient reports he had a similar episode in the past and was told that he had gastritis. Patient denies fever patient reports that the pain does not radiate anywhere other than chest pain. Patient denies vomiting does report that he had some nausea he reports that he did have some loose stool with that as well. Related Data Allergies Allergy/AdvReac Type Severity Reaction Status Date / Time No Known Drug Allergies Allergy Unknown Unknown Verified 10/08/21 11:39 Review of Systems Review of Systems: A 10 system review of systems was completed on the patient and is negative except for what is stated in the HPI. Nursing and ancillary documentation was reviewed. 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 Ear infection GERD (gastroesophageal reflux disease) ANNABELLE (obstructive sleep apnea) Pes anserinus bursitis of left knee Stress fracture of tibia Surgical History Surgical History History of carpal tunnel surgery Hx of tonsillectomy Status post arthroscopic knee surgery Tear of lateral meniscus of left knee Family History Family History Mother Family history of scoliosis Other Diabetes mellitus Family history of allergic disorder Family history of malignant neoplasm Social History Social History Smoking status: Former smoker Tobacco type: smokeless tobacco Smokeless tobacco user: chewing tobacco Alcohol intake: never Substance use: never Living arrangements: with family Gender identity (if verbalized by the patient): Male Exam Narrative: GENERAL: Well-appearing, well-nourished, and in no acute distress. HEAD: Normocephalic, atraumatic. EYES: PERRLA and EOMI. ENT: Nares clear, no rhinorrhea or epistaxis. Mucous membranes moist. NECK: Supple. CHEST: Clear to auscultation. No respiratory distress. HEART: Regular rate and rhythm. No murmur heard. Normal peripheral pulses. ABDOMEN: Soft, mild tenderness to palpation in the epigastric region, nondistended, normal active bowel sounds. EXTREMITIES: Normal range of motion. No edema. SKIN: Warm, dry, no rash. NEURO: No focal deficits. Alert and oriented x3. PSYCH: Normal mood and affect. Course Vital Signs Vital signs: Vital Signs Temperature 36.3 C L 11/09/22 18:52 Pulse Rate 81 11/09/22 18:52 Respiratory Rate 16 11/09/22 18:52 Blood Pressure 125/79 11/09/22 18:52 Pulse Oximetry 100 11/09/22 18:52 Oxygen Delivery Room Air 11/09/22 18:52 Temperature 36.4 C L 11/09/22 20:38 Pulse Rate 62 11/10/22 00:21 Respiratory Rate 16 11/10/22 00:21 Blood Pressure 121/88 11/10/22 00:21 Pulse Oximetry 99 11/10/22 00:21 Oxygen Delivery Room Air 11/09/22 18:52 Medical Decision Making [facility] Narrative Medical decision making narrative: Differential diagnosis includes gastritis, cholecystitis, choledocholithiasis, appendicitis, diverticulitis Laboratory studies were obtained on the patient which showed a normal CBC normal CMP lipase was normal urinalysis showed no evidence of UTI. CT scan of the abdomen pelvis showed evidence of gastritis otherwise no acute abnormality Patient's discomfort was improved with IV fluids antiemetics and IV P
[2022-11-10 00:58] VITALS: BP 118/87; PULSE 63; RESP 14; O2SAT 100
== END 2022-11-10 00:58 | disposition home or self-care (01) ==
PROVIDERS: General Practice; Emergency Provider Emergency Medicine; PCP Family Medicine Sports Medicine
DX: K29.70 Gastritis, unspecified, without bleeding (principal); R10.13 Epigastric pain; F41.9 Anxiety disorder, unspecified; K21.9 Gastro-esophageal reflux disease without esophagitis; G47.30 Sleep apnea, unspecified
CPT/HCPCS: 36415; 74177; 80053; 81003; 83690; 85025; 96361; 96374; 96375; 99284; C9113; J2405; J7030; Q9967